=== PATIENT | female | born 1990 | race Caucasian/White ===

== ENCOUNTER 2022-07-18 11:53 | Emergency (ER) | payer OTHER, SELFPAY ==
[2022-07-18 11:55] VITALS: BP 177/103; PULSE 79; RESP 14; TEMP 36.4; O2SAT 100; BMI 36.8
--- NOTE | 2022-07-18 12:26 | EX.ED.DYSGE1 ---
HPI History of Present Illness Chief Complaint: Neuro S/Sx Informant: patient Onset/Context/Timing Onset: Hours (1) Context: Sudden Onset Timing: Continuous Quality: Diplopia with 2 images on top of each other Location: Left eye Worsened by: Nothing Relieved by: Nothing Narrative Narrative: Patient presents with diplopia and blurred vision that began approxi-1 hour prior to arrival. Patient states it began rather suddenly. Patient states she was reading an email and saw 2 images of the email on top of each other. Patient states it is just in her left eye. Patient states that when she closes her left eye her vision is nearly normal. Patient states it is slightly blurred in the right. Patient states she has a history of migraines with auras. Patient currently denies any headaches. Patient denies any nausea or vomiting. Patient denies any loss of vision. Patient denies any paresthesias or weakness. Patient denies any other symptoms. [facility] Medical History (Updated 07/18/22 @ 14:[address] Jacinto Horta DO) Enrike-Danlos syndrome Migraine with aura PCOS (polycystic ovarian syndrome) Home Medications escitalopram oxalate 10 mg tablet (Lexapro) 10 mg PO DAILY 07/18/22 [History Last Taken Unknown] semaglutide 0.25 mg or 0.5 mg (2 mg/3 mL) subcutaneous pen injector (Ozempic) 0.25 mg subcut QWEEK 07/18/22 [History Last Taken Unknown] Allergy/AdvReac Type Severity Reaction Status Date / Time amoxicillin Allergy Hives Verified 07/18/22 11:56 Surgical History History of ankle surgery Hx of adenoidectomy Hx of knee surgery Social History Smoking Status: Current every day smoker tobacco type: e-cigarettes ROS ROS ED Constitutional Constitutional ED: Denies chills or fever(s) Eyes Eyes: Reports blurry vision and diplopia ENT ENT ED: Denies rhinorrhea or sore throat Cardiovascular Cardiovascular: Denies chest pain or palpitations Respiratory/Chest Respiratory/Chest: Denies cough or dyspnea Gastrointestinal Gastrointestinal: Denies nausea or vomiting Genitourinary Genitourinary ED: Denies dysuria or hematuria Musculoskeletal Musculoskeletal: Denies back pain or neck pain Integumentary Denies abscess or rash Neurologic Neurologic: Denies headache(s) or weakness Allergic/Immunologic Allergic/Immunologic ED: Denies mouth swelling or urticaria EXAM Physical Exam Const Vital Signs: 07/18/22 11:55 07/18/22 13:00 Temperature 97.6 F L Temperature Source Temporal Pulse Rate 79 64 Respiratory Rate 14 16 Blood Pressure 177/103 H 132/78 H Blood Pressure Mean 127 96 Pulse Ox 100 99 Oxygen Delivery Method Room Air Room Air Positive well nourished and well developed General Appearance ED: well developed HEENT Reports moist mucous membranes Eyes PERRL and EOMs intact bilaterally Eyes Narrative: There are no visual field deficits noted. Neck supple and no JVD Resp normal respiratory effort and clear to auscultation bilaterally Cardio regular rate, regular rhythm and no murmurs GI normal to inspection, nondistended, normoactive bowel sounds and non-tender Palpation: soft Extremity normal to inspection General Extremety ED: Negative for edema or tenderness General Extremity: Negative for edema Neuro oriented x3, CN's II-XII intact bilaterally and no sensory deficits noted Sensorium / Orientation: alert Motor Exam: strength 5/5 throughout Psych mental status grossly normal Skin no rashes or lesions noted MDM MDM MDM Narrative Medical decision making narrative: Differential diagnosis includes migraine with aura, intracranial mass, intracranial bleeding, electrolyte abnormality, and stroke. CT scan of the brain will be obtained to assess for stroke and intracranial bleeding intracranial mass. CBC will be obtained to assess for anemia and for cytosis. Basic metabolic profile will be obtained to assess for electrolyte abnormality and renal function. Lab Data Lab results narrative: CBC was reviewed and was within normal limits. Basic metabolic profile was reviewed and was normal. Serum hCG was reviewed and was negative. Labs: Laboratory Results - last 24 hr 07/18/22 07/18/22 07/18/22 12:49 12:49 12:49 WBC 9.1 RBC 5.25 Hgb 12.8 Hct 41.6 MCV 79.2 L MCH 24.4 L MCHC 30.8 L RDW Std Deviation 41.9 RDW Coeff of [place] 14.7 H Plt Count 318 MPV 9.3 Immature Gran % (Auto) 0.300 Neut % (Auto) 59.6 Lymph % (Auto) 33.4 [place] % (Auto) 3.6 Eos % (Auto) 2.7 Baso % (Auto) 0.4 Absolute Neuts (auto) 5.4 Absolute Lymphs (auto) 3.02 Nucleated RBC % 0 Sodium 143 Potassium 4.1 Chloride 112 H Carbon Dioxide 25.0 Anion Gap 6 BUN 12 Creatinine 0.64 Estim Creat Clear Calc 97.87 Est GFR (MDRD) Af Amer 141 Est GFR (MDRD) Non-Af 116 BUN/Creatinine Ratio 18.8 Glucose 96 Calcium 9.3 Serum , Qual NEGATIVE Radiography Diagnostic Testing: Clinical Impression(s) from Imaging Studies Brain CT 07/18/22 12:31 IMPRESSION: Mild degree of mucosal thickening of the ethmoid sinuses. Electronically Signed: Xavi Marks MD at 13:43 EDT , CT scan of the brain was obtained. There is no acute intracranial abnormality. This was interpreted by the radiologist and was also independently reviewed by myself. Treatment and Re-Evaluation :: Patient was given IV fluids, Reglan, and Benadryl. Patient had no change of her symptoms after the medication. Case was discussed with Dr. Sanchez from ophthalmology. He states that monocular diplopia is usually related to the eye itself. He agrees with the work-up. He will follow-up with the patient in 1 to 2 days as an outpatient. He states that if her symptoms get worse she should just go straight to his office. Patient understands and was agreeable with the plan. All questions were answered. Discharge Plan Triage Chief Complaint: Neuro S/Sx ED Provider: Jacinto Horta Dx/Rx/DC Orders Clinical Impression: Monocular diplopia of left eye Instructions: ED Double Vision (Diplopia) Prescriptions: No Action escitalopram oxalate [Lexapro] 10 mg Tablet 10 mg PO DAILY Ozempic 0.25 mg or 0.5 mg (2 mg/3 mL) Pen Injector 0.25 mg SUBCUT QWEEK Rx Instructions: for 4 weeks Primary Care Provider: Ari Hutchinson CNP Referrals: Ari Hutchinson CNP [Other] Thomas Sanchez MD [Med Staff - Active Staff] - 1 Day Activity Restrictions/Additional Instructions: Call the radiosonde operator office today to schedule appointment in 1 to 2 days. If your symptoms get worse you may go to the radiosonde operator office and they may be able to fit you into the schedule. Disposition Disposition: Home, Self Care Discharge Date/Time: 07/18/22 14:56
--- NOTE | 2022-07-18 12:31 | CT_ITS ---
STUDY: CT BRAIN WITHOUT CONTRAST REASON FOR EXAM: Female, 31 years old. Diplopia. History of migraines. RADIATION DOSAGE (If Supplied By Facility): CTDIvol = ( 44.99 ) mGy, DLP = ( 745.49 ) mGycm TECHNIQUE: Transaxial CT imaging of the brain was performed without administration of intravenous contrast material. Individualized dose optimization techniques were used for this CT. COMPARISON: No relevant priors. FINDINGS: Normal soft tissue structures. Normal calvarium. Normal size ventricles and extra-axial spaces for the patient''s age. Normal white matter tracts of the cerebral hemispheres. Normal basal ganglia and thalami. Normal brainstem. Normal cerebellum. There is no intracranial hemorrhage. There are no findings of an acute ischemic infarction. Mild degree of mucosal thickening of the ethmoid sinuses. CT/Brain/Head without Contrast IMPRESSION: Mild degree of mucosal thickening of the ethmoid sinuses. Electronically Signed: Xavi Marks MD at 13:43 EDT ,
[2022-07-18] MEDS: 0.9% Normal Saline 1,000 ML 999 ML IV (12:45)
[2022-07-18] MEDS: DiphenhydrAMINE 50 MG/ML Syringe 25 MG IV (12:45)
[2022-07-18] MEDS: Metoclopramide 10 MG/2 ML Vial IV (12:45)
[2022-07-18 13:00] VITALS: BP 132/78; PULSE 64; RESP 16; O2SAT 99
[2022-07-18 13:01] LABS: Absolute Lymphocyte Count 3.02 X10^3/uL (0.83-4.51); Absolute Neutrophil Count 5.4 X10^3/uL (2.0-7.7); Basophil# 0.04 X10^3/uL; Basophil% 0.4 % (0-1); Eosinophil# 0.24 X10^3/uL; Eosinophils% 2.7 % (0-5); Hematocrit 41.6 % (37-47); Hemoglobin 12.8 g/dL (12.0-15.0); Lymphocyte # 3.02 X10^3/ul (0.83-4.51); Lymphocyte % 33.4 % (19-41); Mean Corp Hgb Conc 30.8 g/dL (32-36); Mean Corpuscular Hgb 24.4 pg (27.0-32.0); Mean Corpuscular Volume 79.2 fL (81-99); Mean Platelet Vol. 9.3 fl (6.2-12.0); Monocyte# 0.33 X10^3/uL; Monocyte% 3.6 % (0-10); NRBC Flagged by Analyzer 0 % (0-5); Neutrophil # 5.39 X10^3/uL (2.7-7.7); Neutrophil % 59.6 % (47-70); Platelet Count 318 K/mm3 (150-450); RBC Distribution Width CV 14.7 % (11.6-14.6); RBC Distribution Width SD 41.9 fl (35.1-43.9); Red Blood Count 5.25 M/mm3 (4.2-5.4); White Blood Count 9.1 K/mm3 (4.4-11.0)
[2022-07-18 13:13] LABS: Anion Gap 6 (5-15); BUN 12 mg/dL (7-18); BUN/Creat Ratio 18.8 RATIO (10-20); Calcium,Total 9.3 mg/dL (8.5-10.1); Chloride 112 mmol/L (98-107); Creatinine, Serum 0.64 mg/dL (0.55-1.02); EST Glomerular Filtration Rate 116 mL/min (>60); Est Glom Filt Rate - Afr Amer 141 mL/min (>60); Estimated Creatinine Clearance 97.87 ml/min; Glucose 96 mg/dL (74-106); Potassium 4.1 mmol/L (3.5-5.1); Sodium Level 143 mmol/L (136-145)
[2022-07-18 13:18] LABS: Internal QC Validated? YES +Cl - CLEAR BKGD; Pregnancy, Serum, hCG Quali. NEGATIVE Negative
[2022-07-18 14:00] VITALS: BMI 36.8
== END 2022-07-18 14:56 | disposition home or self-care (01) ==
PROVIDERS: Emergency Provider Emergency Medicine; Visit Provider Emergency Medicine
DX: H53.2 Diplopia (principal); F17.290 Nicotine dependence, other tobacco product, uncomplicated; Z79.899 Other long term (current) drug therapy
CPT/HCPCS: 70450; 80048; 84703; 85025; 96374; 96375; 99283